=== PATIENT | male | born 1970 | race Two or more races ===

== ENCOUNTER 2018-02-28 17:45 | Emergency (ER) | payer SELFPAY ==
[~2018-02-28] VITALS: Ht 177.8 cm; Wt 117.9 kg
[2018-02-28 19:04] LABS: Basophils # (auto) 0 uL; Basophils % (auto) 0.1 % (0.0-2.0); Eosinophils # (auto) 0 uL; Lymphocytes # (auto) 1.1 uL; Lymphocytes % (auto) 5.3 % (10.0-50.0)
[2018-02-28 19:06] LABS: Hemoglobin 19.8 g/dL (13.5-17.5); Mean Corpuscular Hemoglobin 31.6 pg (28.0-32.0); Mean Corpuscular Hgb Conc. 34.8 g/dL (32.0-36.0); Mean Corpuscular Volume 90.9 fL (80.0-100.0); Monocytes # (auto) 0.7 uL; Monocytes % (auto) 3.5 % (0.0-12.0); Neutrophils # (auto) 18.3 uL; Neutrophils % (auto) 91.1 % (37.0-80.0); Nucleated Red Blood Cells % 0.1 %; Platelet Count (auto) 415 10^3/uL (140-450); Red Blood Cells 6.28 10^6/uL (4.5-5.90); Red Cell Distribution Width 13.3 % (11.8-14.3)
[2018-02-28 19:15] LABS: Hematocrit 57.1 % (41.0-53.0)
[2018-02-28 19:18] LABS: Albumin 3.9 g/dL (3.4-5.0); Anion Gap 19 (5-15); Blood Alcohol < 3.0 mg/dL (0-5); Blood Urea Nitrogen 9 mg/dL (7-18); Calcium 8.7 mg/dL (8.5-10.1); Carbon Dioxide 18 mmol/L (21-32); Chloride 104 mmol/L (98-107); Glucose 141 mg/dL (74-106); Sodium 141 mmol/L (136-145)
[2018-02-28 19:20] LABS: Alanine Aminotransferase 22 U/L (16-61); Aspartate Aminotransferase 22 U/L (15-37); BUN/Creatinine Ratio 5.4; GFR African American 57 mL/min; GFR Non-African American 47 mL/min
[2018-02-28 19:24] LABS: Alkaline Phosphatase 97 U/L (45-117); Bilirubin, Total 0.9 mg/dL (0.2-1.0); Total Protein 8.6 g/dL (6.4-8.2)
[2018-02-28 19:35] LABS: Potassium 2.7 mmol/L (3.5-5.1)
[2018-02-28 19:46] LABS: Urine Bacteria NONE SEEN /hpf (None Seen); Urine Blood 2+ /uL (Negative); Urine Mucus FEW (None Seen); Urine Specific Gravity 1.012 (1.001-1.035); Urine WBC 8 /hpf (0 - 3)
[2018-02-28] MEDS: MIDAZOLAM DRIP 50 mg/50mL 50 ML IV SCH ×2 (20:01→21:01)
[2018-02-28 20:07] LABS: INR 0.97 (0.9-1.15); Partial Thromboplastin Time 24.3 sec (23.78-33.04); Prothrombin Time 10.4 sec (9.27-12.13)
[2018-02-28 20:12] LABS: Alcohol, Urine < 3.0 mg/dL (0-5); Amphetamine Screen, Urine NEGATIVE (NEGATIVE); Barbiturate Scree,Urine NEGATIVE (NEGATIVE); Benzodiazephine Screen, Urine NEGATIVE (NEGATIVE); Cannabinoid Screen, Urine NEGATIVE (NEGATIVE); Cocaine Screen, Urine NEGATIVE (NEGATIVE); Opiate Scree,Urine NEGATIVE (NEGATIVE); Phencyclidine Screen, Urine NEGATIVE (NEGATIVE)
[2018-02-28] MEDS ORDERED: SUCCINYLCHOLINE CHLORIDE 20 MG/ML 10ML VIAL IV ONE (20:15)
[2018-02-28] MEDS ORDERED: CEFTRIAXONE SODIUM 2 GM in D5W 5% 50 ML IV ONE (20:15)
[2018-02-28] MEDS ORDERED: ETOMIDATE (2MG/ML) 20ML VIAL IV ONE (20:15)
[2018-02-28] MEDS ORDERED: MIDAZOLAM DRIP 50 mg/50mL 50 ML IV ONE (20:16)
[2018-02-28] MEDS ORDERED: THIAMINE INJ 100 MG, MULTIPLE VITAMIN 10 ML, FOLIC ACID 1 MG, MAGNESIUM SULF SDV 50% 8 ... IV SCH ×5 (20:20)
[2018-02-28] MEDS ORDERED: cefTRIAXone SOD 1,000 MG VL ONE (20:30)
[2018-02-28] MEDS ORDERED: PROPOFOL 100 ML IV SCH (21:10)
[2018-02-28] MEDS ORDERED: PROPOFOL 100 ML IV ONE (21:11)
[2018-02-28] MEDS ORDERED: DEXAMETHASONE SOD PHOS 10MG/1ML VIAL INJ IV ONE (21:45)
[2018-02-28] MEDS ORDERED: MANNITOL 20% SOLN 100 gm/500ml 500 ML IV ONE (21:45)
[2018-03-01] MEDS ORDERED: SODIUM CHLORIDE 0.9% 1,000 ML IV ONE (00:15)
[2018-03-01] MEDS ORDERED: POTASSIUM CHL 20MEQ/100ML 200 ML IV ONE (00:29)
[2018-03-01] MEDS ORDERED: POTASSIUM CHL 20MEQ/100ML 100 ML IV SCH (00:30)
[2018-03-01 00:43] VITALS: BP 105/70
[2018-03-01 00:50] LABS: Magnesium 2.7 mg/dL (1.6-2.6); Phosphorus 1.5 mg/dL (2.5-4.90)
[2018-03-01] MEDS ORDERED: THIAMINE INJ 100 MG, MULTIPLE VITAMIN 10 ML, FOLIC ACID 1 MG, MAGNESIUM SULF SDV 50% 8 ... IV SCH ×5 (12:00)
== END 2018-03-01 00:40 | disposition short-term general hospital (02) ==
LOC: ER 17:52
DX: I63.9 Cerebral infarction, unspecified (principal); D72.823 Leukemoid reaction; G91.1 Obstructive hydrocephalus; J44.9 Chronic obstructive pulmonary disease, unspecified
CPT/HCPCS: 31500; 36415; 36600; 51702; 70450; 71045; 72125; 80053; 80307; 80320; 81001; 82805; 82962; 83735; 84100; 84484; 85025; 85610; 85730; 87040; 87070; 87077; 87186; 87205; 96361; 96365; 96367; 96368; 96375; 99285; J0330; J0696; J1100; J2250; J2704; J3480; 93005; 94002; J7060

== ENCOUNTER 2025-03-12 12:15 | Emergency (ER) | payer MEDICARE, MEDICAID ==
[~2025-03-12] VITALS: Ht 177.8 cm; Wt 104.5 kg
--- NOTE | 2025-03-12 12:55 | ED.PDOC ---
Musculoskeletal HPI Comments 54y M who presents to the ED for chief complaint of LLE pain. Pt states he has been having LLE pain and bruising since last night PM. Pt denies any associated fall, trauma or associated injury. Pt in the ED, states he is having associated numbness and noted skin discoloration. Pt otherwise denies any associated fever, chills, shortness of breath or associated symptoms. Pt in the ED, has noted BP of 153/83 with otherwise stable vitals including temp 98.9 F, 02 sat of 96% on room air. Pt denies any other symptoms. Chief Complaint: Lower Extremity Time Seen by MD: 13:36 Primary Care Provider: TRISTA Reviewed Notes: Medications, Allergies Allergies: Coded Allergies: NO KNOWN ALLERGIES (Unverified , 02/28/18) Home Meds Active Scripts Colchicine (Colchicine) 0.6 Mg Cap, 0.6 MG PO BID for 5 Days, #10 CAP Prov:SHAYY ZAVALA MD 03/12/25 Dexamethasone (Decadron) 4 Mg Tb, 4 MG PO BID for 5 Days, #10 TAB Prov:SHAYY ZAVALA MD 03/12/25 Information Source: Patient, Relative Mode of Arrival: Ambulatory Past Medical History PAST MEDICAL HISTORY: Asthma, COPD Surgical History: Denies all surgeries Family History Family History: Unknown Social History Smoker: Non-Smoker Alcohol: Occasionally Drugs: Denies Drug Use Lives In: Home All Other Systems: Reviewed and Negative (see HPI) Physical Exam General Appearance: Moderate Distress HEENT: Normal ENT Inspection, PERRL/EOMI Neck: Full Range of Motion, Non-Tender, Normal, Normal Inspection Respiratory: Chest Non-Tender, Lungs Clear, No Accessory Muscle Use, No Respiratory Distress, Normal Breath Sounds Cardiovascular: No Edema, No JVD, No Murmur, No Gallop, Normal Peripheral Pulses, Regular Rate/Rhythm Breast Exam: Deferred Gastrointestinal: No Organomegaly, Non Tender, No Pulsatile Mass, Normal Bowel Sounds, Soft Genitalia: Deferred Pelvic: Deferred Rectal: Deferred Extremities: No calf tenderness, Normal capillary refill, Normal inspection, Normal range of motion, Non-tender, No pedal edema Musculoskeletal : Location: Left Extremity Location: Ankle Apperance: Swelling, Limited ROM, Tenderness: Moderate Neurologic: Alert, private client advisor II-XII nml as Tested, No Motor Deficits, Normal Affect, Normal Mood, No Sensory Deficits Cerebellar Function: Normal Reflexes: Normal Skin: Dry, Normal Color, Warm Peripheral Pulses: 1+ carotid (R), 1+ carotid (L) Lymphatic: No Adenopathy Was a procedure done? Was a procedure done?: No Differential Diagnosis EXT Differential Diagnosis: Cellulitis, Deep Vein Thrombosis, Gout, DJD, Strain, Rheumatoid, Arthritis X-Ray, Labs, Meds, VS Vital Signs Date Time Temp Pulse Resp B/P (MAP) Pulse Ox O2 Delivery O2 Flow Rate FiO2 03/12/25 12:16 98.9 89 16 153/83 96 98.9 Lab Test 03/12/25 13:06 Range/Units Uric Acid 10.8 H 3.7-9.2 mg/dL [place] [id number] Ph: [phone] DIAGNOSTIC IMAGING Diagnostic Imaging Report : [id number] Signed PATIENT: ROBERT MAYORGA ACCT: [id number] UNIT: [id number] : 1970 LOC: ER ROOM / BED: / AGE / SEX: 54 / M ADM STATUS: REG ER SERVICE [id number] ORDERING PHYSICIAN: SHAYY ZAVALA MD PROCEDURE(s): LANKL - L ANKLE 3 VIEW REASON: Pain swelling and discoloration ORDER NUMBER(s): [id number], ACCESSION NUMBER(s): [id number] CLINICAL INDICATION: Pain swelling and discoloration TECHNIQUE: XY L ANKLE 3 VIEW Comparison: None FINDINGS/IMPRESSION: : There is no evidence of acute fracture or dislocation. Degenerative spurring of the calcaneus. Small joint effusion. ATED BY: BOWEN SOLANO MD DICTATED DATE/TIME: 03/12/251316 SIGNED BY: BOWEN SOLANO MD SIGNED DATE/TIME: 03/12/251316 CC: X-Ray, Labs, Meds, VS Comment Course in the emergency department eventful patient came in complaining of left ankle sudden onset last night X-ray of the ankle is normal Ultrasound does not show any DVT Uric acid 10.8 Patient will be discharged home to follow up with his PCP You need to stop the hydrochlorothiazide Time of 1ST Reevaluation: 14:49 Reevaluation 1ST: Unchanged Consultation: PCP Patient Education/Counseling: Diagnosis, Treatment, Prognosis, Need For Follow Up Family Education/Counseling: Diagnosis, Treatment, Prognosis, Need For Follow Up, No Family Present Departure 1 Departure Time of Disposition: 14:41 Impression: Primary Impression: Acute gouty arthritis Additional Impression: Status post cerebrovascular accident Disposition: 01 HOME / SELF CARE / HOMELESS Condition: Fair Additional Instructions: Push fluids and stop the hydrochlorothiazide e-Prescriptions Colchicine (Colchicine) 0.6 Mg Cap 0.6 MG PO BID for 5 Days, #10 CAP Prov: SHAYY ZAVALA MD 03/12/25 Dexamethasone (Decadron) 4 Mg Tb 4 MG PO BID for 5 Days, #10 TAB Prov: SHAYY ZAVALA MD 03/12/25 Discharged With: Self Critical Care Note Critical Care Time?: No Stability Stability form required: No Heart Score Heart Score: Heart Score Response (Comments) Value History N/A 0 EKG N/A 0 Age 45-64 1 Risk Factors >3 or Hx ASHD 2 Troponin N/A 0 Total 3 I personally scribed for SHAYY ZAVALA MD ([email or web address]) on 03/12/25 at 12:55. Electronically submitted by Marissa Villalpando ([employer]). I personally scribed for SHAYY ZAVALA MD ([email or web address]) on 03/12/25 at 13:20. Electronically submitted by Marissa Villalpando ([employer]). I personally scribed for SHAYY ZAVALA MD ([email or web address]) on 03/12/25 at 13:45. Electronically submitted by Marissa Villalpando ([employer]). SHAYY ZAVALA MD Mar 12, 2025 12:55
--- NOTE | 2025-03-12 13:20 | DVH ---
CLINICAL INDICATION: Pain swelling and discoloration TECHNIQUE: XY L ANKLE 3 VIEW Comparison: None FINDINGS/IMPRESSION: : There is no evidence of acute fracture or dislocation. Degenerative spurring of the calcaneus. Small joint effusion.
--- NOTE | 2025-03-12 14:10 | DVH ---
LEFT LOWER EXTREMITY VENOUS DUPLEX REASON FOR EXAMINATION: dvt. Left ankle and lower leg pain, swelling, and bruising. COMPARISON: XY L ANKLE 3 VIEW on DOS: 03/12/25 TECHNIQUE: Using real-time freeze-frame technique with a high-frequency transducer, multiple longitu dinal and transverse sections were obtained. Simultaneous color flow and spectral Doppler imaging wa s performed. FINDINGS: There is good visualization of the deep venous system with no intraluminal filling defects identified. Normal venous compressibility is seen and there is flow augmentation. Color flow Doppler imaging is unremarkable. IMPRESSION: NO EVIDENCE OF DEEP VENOUS THROMBOSIS.
[2025-03-12] MEDS ORDERED: DEX4T PO (14:46)
[2025-03-12] MEDS ORDERED: COLC1CAP PO (14:46)
[2025-03-12 14:58] VITALS: BP 132/72; PULSE 84; RESP 17; TEMP 97.8; O2SAT 97
[2025-03-12] MEDS: KETOROLAC TROMETH 60MG/2ML VIAL IM ONE (15:01)
== END 2025-03-12 15:00 | disposition home or self-care (01) ==
LOC: ER 12:15
DX: M10.072 Idiopathic gout, left ankle and foot (principal); S90.02XA Contusion of left ankle, initial encounter; J44.89 Other specified chronic obstructive pulmonary disease; Z79.899 Other long term (current) drug therapy; Z86.73 Personal history of transient ischemic attack (TIA), and cerebral infarction without residual deficits; X58.XXXA Exposure to other specified factors, initial encounter; Y93.89 Activity, other specified; Y92.89 Other specified places as the place of occurrence of the external cause; Y99.8 Other external cause status
CPT/HCPCS: 36415; 73610; 84550; 93971; 96372; 99285; J1885